=== PATIENT | female | born 1970 | race Caucasian/White ===

== ENCOUNTER 2017-03-31 09:52 | Emergency (ER) | payer OTHER ==
[2017-03-31 10:07] VITALS: RESP 18; TEMP 98; O2SAT 99
[2017-03-31] MEDS ORDERED: NS 1,000 ML IV ONE (10:13)
[2017-03-31] MEDS ORDERED: DEXAMETHASONE 10 MG/ML VIAL IVP ONE (10:13)
[2017-03-31] MEDS ORDERED: METOCLOPRAMIDE 10 MG/2 ML VIAL IVP ONE (10:13)
[2017-03-31] MEDS ORDERED: KETOROLAC 30 MG/1 ML SDV IVP ONE (10:13)
--- NOTE | 2017-03-31 10:16 | EDPHY ---
H & P Stated Complaint: c/o N/V/D and TODD on and off since tue- here from [place] Time Seen by Provider: 03/31/17 10:00 HPI/ROS: CHIEF COMPLAINT: Vomiting, diarrhea, headache HISTORY OF PRESENT ILLNESS: The patient is a 47-year-old female with a history of migraines who is here visiting from out of town. She developed diarrhea and vomiting soon after arrival 2 days ago. She felt dehydrated and had decreased sleep. She then developed a migraine which is not unusual for her. She states that she has not had 1 for several years but that it feels typical. She states that the nausea vomiting and diarrhea decreased but she still has a mild headache. Her headache is not as bad as it was yesterday. She has not had a fever. She denies any trauma. No focal weakness or deficits been she did have some vision changes initially but this is normal for her. REVIEW OF SYSTEMS: Constitutional: denies: chills, fever, recent illness, recent injury EENTM: See HPI Respiratory: denies: cough, shortness of breath Cardiac: denies: chest pain, irregular heart rate, lightheadedness, palpitations Gastrointestinal/Abdominal: See HPI Genitourinary: denies: dysuria, frequency, hematuria, pain Musculoskeletal: denies: joint pain, muscle pain Skin: denies: lesions, rash, jaundice, bruising Neurological: See HPI denies: numbness, paresthesia, tingling, dizziness, weakness Hematologic/Lymphatic: denies: blood clots, easy bleeding, easy bruising Immunologic/allergic: denies: HIV/AIDS, transplant EXAM: GENERAL: Well-appearing, well-nourished and in no acute distress. HEAD: Atraumatic, normocephalic. EYES: Pupils equal round and reactive to light, extraocular movements intact, sclera anicteric, conjunctiva are normal. ENT: TMs normal, nares patent, oropharynx clear without exudates. Moist mucous membranes, drinking sparkling water. NECK: Normal range of motion, supple without lymphadenopathy or JVD. LUNGS: Breath sounds clear to auscultation bilaterally and equal. No wheezes rales or rhonchi. HEART: Regular rate and rhythm without murmurs, rubs or gallops. ABDOMEN: Soft, nontender, normoactive bowel sounds. No guarding, no rebound. No masses appreciated. BACK: No CVA tenderness, no spinal tenderness, step-offs or deformities EXTREMITIES: Normal range of motion, no pitting or edema. No clubbing or cyanosis. NEUROLOGICAL: Cranial nerves II through XII grossly intact. Normal speech, normal gait. 5/5 strength, normal movement in all extremities, normal sensation PSYCH: Normal mood, normal affect. SKIN: Warm, dry, normal turgor, no visible rashes or lesions. Source: Patient Exam Limitations: No limitations - Personal History LMP (Females 10-55): Post Menopausal Current Tetanus Diphtheria and Acellular Pertussis (TDAP): Yes - Medical/Surgical History Hx Asthma: No Hx Chronic Respiratory Disease: No Hx Diabetes: No Hx Cardiac Disease: No Hx Renal Disease: No Hx Cirrhosis: No Hx Alcoholism: No Other PMH: Migraines, T/A - Social History Smoking Status: Never smoked Constitutional: Initial Vital Signs Temperature (C) 36.6 C 03/31/17 10:04 Heart Rate 73 03/31/17 10:04 Respiratory Rate 18 03/31/17 10:04 Blood Pressure 160/100 H 03/31/17 10:04 O2 Sat (%) 99 03/31/17 10:04 O2 Delivery Mode Room Air Allergies/Adverse Reactions: No Known Allergies Allergy (Unverified 03/31/17 10:22) Home Medications: Medication Instructions Recorded Metoclopramide [Reglan 10 mg tab 10 mg PO BID PRN #10 tab 03/31/17 (RX)] Medical Decision Making ED Course/Re-evaluation: 11:00 a.m. the patient is feeling completely better. She is asking to leave. She is asking for prescription for Reglan. She declines further observation or treatment or testing. We discussed indications for returning. Differential Diagnosis: Partial list of the Differential diagnosis considered include but were not limited to; migraine, gastritis, dehydration and although unlikely based on the history and physical exam, I also considered intracranial hemorrhage, sepsis , meningitis, appendicitis, urinary tract infection. I discussed these differential diagnoses and the plan with the patient as well as the usual and expected course. The patient understands that the diagnosis is provisional and that in medicine we are not always correct and that further workup is often warranted. Usual and customary warnings were given. All of the patient's questions were answered. The patient was instructed to return to the emergency department should the symptoms at all worsen or return, otherwise to followup with the physician as we discussed. - Data Points Medications Given: Discontinued Medications Dexamethasone (Decadron Injection) 10 mg IVP EDNOW ONE Stop: 03/31/17 10:14 Last Admin: 03/31/17 10:20 Dose: 10 mg Sodium Chloride (Ns) 1,000 mls @ 0 mls/hr IV ONCE ONE; Wide Open PRN Reason: Protocol Stop: 03/31/17 10:14 Last Admin: 03/31/17 10:21 Dose: 1,000 mls Ketorolac Tromethamine (Toradol) 15 mg IVP EDNOW ONE Stop: 03/31/17 10:14 Last Admin: 03/31/17 10:21 Dose: 15 mg Metoclopramide HCl (Reglan Injection) 10 mg IVP EDNOW ONE Stop: 03/31/17 10:14 Last Admin: 03/31/17 10:20 Dose: 10 mg Departure - Departure Disposition: Home, Routine, Self-Care Clinical Impression: Gastroenteritis Migraine Qualifiers: Migraine type: unspecified Status migrainosus presence: without status migrainosus Intractability: not intractable Qualified Code(s): G43.909 - Migraine, unspecified, not intractable, without status migrainosus Condition: Fair Instructions: Migraine Headache (ED), Gastroenteritis (ED) Referrals: NONE *PRIMARY CARE P,. [Primary Care Provider] - As per Instructions Prescriptions: Metoclopramide [Reglan 10 mg tab (RX)] 10 mg PO BID PRN #10 tab PRN Reason: Headache
[2017-03-31 11:15] VITALS: BP 117/67; PULSE 68
== END 2017-03-31 11:13 | disposition home or self-care (01) ==
LOC: CED 09:52
DX: K52.9 Noninfective gastroenteritis and colitis, unspecified (principal); G43.909 Migraine, unspecified, not intractable, without status migrainosus; E86.9 Volume depletion, unspecified
CPT/HCPCS: 96374; J1100; J1885; J2765